=== PATIENT | female | born 1960 | race Caucasian/White ===

== ENCOUNTER 2021-07-11 21:06 | Inpatient (IN) ==
[2021-07-11 21:55] LABS: Basophils # 0.1 K/mcL (0.0-0.2); Basophils % 0.6 %; Eosinophils # 0.2 K/mcL (0.0-0.6); Eosinophils % 1.6 %; Hemoglobin 15.4 g/dL (11.5-15.4); Immature Granulocytes % 0.3 % (0-4); Lymphocytes # 5.3 K/mcL (0.6-4.6); Lymphocytes % 53.1 %; Mean Corpuscular Hemoglobin 30.2 pg (28.0-33.3); Mean Corpuscular Volume 86.3 fL (83.0-100.0); Mean Platelet Volume 9.7 fL (9.4-12.4); Monocytes # 0.7 K/mcL (0.0-1.3); Monocytes % 6.8 %; Neutrophils # 3.8 K/mcL (1.6-8.9); Platelet Count 313 K/mcL (140-400); Red Cell Distribution Width 13.2 % (11.5-14.5); Segmented Neutrophils % 37.6 %
[2021-07-11] MEDS ORDERED: *HR* LORazepam 0.5 MG TABLET PO ONE (22:11)
[2021-07-11 22:20] LABS: Acetaminophen < 10 mcg/mL (10-20); Alanine Aminotransferase 11 Units/L (7-52); Albumin/Globulin Ratio 1.5 (1.1-2.2); Alkaline Phosphatase 62 Units/L (34-104); Aspartate Amino Transferase 12 Units/L (13-39); BUN/Creatinine Ratio 11 (6-26); Bilirubin,Direct 0.1 mg/dL (0.0-0.2); Bilirubin,Indirect 0.4 mg/dL (0.0-1.0); Bilirubin,Total 0.5 mg/dL (0.3-1.0); Blood Urea Nitrogen 10 mg/dL (6-20); Calcium 9.5 mg/dL (8.6-10.3); Carbon Dioxide 19 mEq/L (23-29); Chloride 107 mEq/L (98-107); Ethanol < 10 mg/dL (Less than 10); Globulin 2.6 g/dL (2.4-3.5); Glucose 95 mg/dL (70-105); Osmolality,Calculated 283 (280-300); Potassium 3.4 mEq/L (3.5-5.1); Sodium 137 mEq/L (136-145); Total Protein 6.6 g/dL (6.4-8.9); eGFR For African Americans > 60 (> 60); eGFR For Non-African Americans > 60 (> 60)
[2021-07-11 22:29] LABS: Bacteria,Urine Few per hpf (None-Few); Bilirubin,Urine Negative (Negative); Blood,Urine Small (Negative); Clarity,Urine Clear (Clear); Color,Urine Light-Yellow (Yellow); Glucose,Urine (UA) Normal (Normal); Ketones,Urine 60 mg/dL (Negative); Leukocyte Esterase,Urine Trace (Negative); Mucus,Urine Few per lpf (None-Few); Nitrite,Urine Negative (Negative); Protein,Urine Trace mg/dL (Neg-Trace); Specific Gravity,Urine 1.019 (1.010-1.025); Squamous Epithelial Cell,Urine Few per hpf (None-Few); WBC,Urine 0-3 per hpf (0-3)
[2021-07-11 22:56] LABS: Amphetamine Screen,Urine Negative ng/mL (Cutoff=1000); Barbiturate Screen,Urine Negative ng/mL (Cutoff=200); Benzodiazepines Screen,Urine Positive ng/mL (Cutoff=200); Cannabinoid Screen,Urine Negative ng/mL (Cutoff = 50); Cocaine Screen,Urine Negative ng/mL (Cutoff= 300); Opiate Screen,Urine Negative ng/mL (Cutoff=300); Phencyclidine Screen,Urine Negative ng/mL (Cutoff=25)
[2021-07-12 02:21] LABS: Influenza A PCR Negative (Negative); Influenza B PCR Negative (Negative); Resp. Syncytial Virus PCR Negative (Negative)
[2021-07-12 02:35] LABS: SARS-CoV-2 by PCR (In House) Negative (Negative)
[2021-07-12] MEDS ORDERED: hydrOXYzine pamoate 25 MG CAPSULE PO PRN (04:36)
[2021-07-12] MEDS ORDERED: Ibuprofen 400 MG TABLET PO PRN (04:36)
[2021-07-12] MEDS ORDERED: *HR* LORazepam 2 MG/ML VIAL IM PRN (04:36)
[2021-07-12] MEDS ORDERED: haloperidoL 5 MG TABLET PO PRN (04:36)
[2021-07-12] MEDS ORDERED: Acetaminophen 325 MG TABLET PO PRN (04:36)
[2021-07-12] MEDS ORDERED: traZODone 50 MG TABLET PO PRN (04:36)
[2021-07-12] MEDS ORDERED: Haloperidol Lactate 5 MG/ML VIAL IM PRN (04:36)
[2021-07-12] MEDS ORDERED: *HR* LORazepam 1 MG TABLET PO PRN (04:36)
[2021-07-12] MEDS ORDERED: Nicotine 21 MG PATCH.TD24 TD SCH (04:45)
[2021-07-12] MEDS ORDERED: Mag Hydrox/Al Hydrox/Simeth 30 ML UDC PO PRN (08:17)
[2021-07-12] MEDS ORDERED: MOM Conc 10 ML UD.LIQ PO PRN (08:17)
[2021-07-12] MEDS ORDERED: ALPRAZolam 1 MG TABLET PO SCH (09:00)
[2021-07-12] MEDS ORDERED: ALPRAZolam 1 MG TABLET PO PRN (10:18)
[2021-07-12 10:25] VITALS: TEMP 98.2; O2SAT 97
[2021-07-12] MEDS ORDERED: diazePAM 2 MG TABLET PO SCH (10:30)
[2021-07-12] MEDS ORDERED: Isovue-370 500 ML BOTTLE IVP ONE (10:46)
[2021-07-12 11:25] LABS: Basophils # 0.1 K/mcL (0.0-0.2); Basophils % 0.7 %; Hematocrit 47.6 % (35.3-44.9); Hemoglobin 16.2 g/dL (11.5-15.4); Immature Granulocytes % 0.2 % (0-4); Lymphocytes # 3.1 K/mcL (0.6-4.6); Mean Corpuscular Hemoglobin 29.8 pg (28.0-33.3); Mean Corpuscular Volume 87.5 fL (83.0-100.0); Mean Platelet Volume 9.4 fL (9.4-12.4); Monocytes # 0.5 K/mcL (0.0-1.3); Monocytes % 5.8 %; Neutrophils # 4.5 K/mcL (1.6-8.9); Platelet Count 296 K/mcL (140-400); Red Blood Count 5.44 M/mcL (3.82-4.97); Red Cell Distribution Width 13.6 % (11.5-14.5); Segmented Neutrophils % 55.3 %; White Blood Count 8.1 K/mcL (4.3-11.1)
[2021-07-12 11:43] LABS: BUN/Creatinine Ratio 10 (6-26); Blood Urea Nitrogen 10 mg/dL (6-20); Calcium 9.7 mg/dL (8.6-10.3); Carbon Dioxide 20 mEq/L (23-29); Chloride 106 mEq/L (98-107); Glucose 96 mg/dL (70-105); Osmolality,Calculated 287 (280-300); Potassium 3.8 mEq/L (3.5-5.1); Sodium 139 mEq/L (136-145); eGFR For African Americans > 60 (> 60); eGFR For Non-African Americans 59 (> 60)
[2021-07-12 14:58] VITALS: BP 103/72; PULSE 144
== END 2021-07-12 16:00 | disposition other institution (70) | DRG 885 ==
LOC: EMEROOARM 21:06 → MERGE 07-12 04:46 → 1ANU 07-12 04:46
PROVIDERS: ADMIT Psychiatry & Neurology Psychiatry; ATTEND Psychiatry & Neurology Psychiatry

== ENCOUNTER 2021-07-12 14:39 | Observation (INO) ==
[2021-07-12] MEDS ORDERED: Naloxone 0.4 MG/ML INJ IVP PRN (15:16)
[2021-07-12] MEDS ORDERED: Ondansetron 4 MG/2 ML VIAL IVP PRN (15:16)
[2021-07-12] MEDS ORDERED: 0.9 % Sodium Chloride 1,000 ML IVC ONE (15:17)
[2021-07-12] MEDS ORDERED: Perflutren Lipid Microsphere 1.3 ML in 0.9 % Sodium Chloride 8.7 ML IVP PRN (15:18)
[2021-07-12] MEDS ORDERED: haloperidoL 5 MG TABLET PO PRN (15:22)
[2021-07-12] MEDS: ALPRAZolam 1 MG TABLET PO SCH ×2 (17:31→21:09)
[2021-07-12] MEDS: *HR* Heparin 5,000 UNIT/ML VIAL SQ SCH (17:31)
[2021-07-12] MEDS: Aspirin 81 MG TAB.CHEW PO SCH (17:31)
[2021-07-12] MEDS: 0.9 % Sodium Chloride 1,000 ML IVC SCH (18:27)
[2021-07-13 02:36] LABS: Basophils # 0.1 K/mcL (0.0-0.2); Basophils % 0.9 %; Hematocrit 40.9 % (35.3-44.9); Immature Granulocytes % 0.2 % (0-4); Lymphocytes # 4.2 K/mcL (0.6-4.6); Lymphocytes % 50.9 %; Mean Corpuscular HGB Conc 33.3 g/dL (31.6-35.5); Mean Corpuscular Hemoglobin 29.5 pg (28.0-33.3); Mean Corpuscular Volume 88.7 fL (83.0-100.0); Mean Platelet Volume 10.1 fL (9.4-12.4); Monocytes # 0.5 K/mcL (0.0-1.3); Neutrophils # 3.5 K/mcL (1.6-8.9); Platelet Count 285 K/mcL (140-400); Red Blood Count 4.61 M/mcL (3.82-4.97); Red Cell Distribution Width 13.5 % (11.5-14.5); White Blood Count 8.2 K/mcL (4.3-11.1)
[2021-07-13 02:37] LABS: Hemoglobin 13.6 g/dL (11.5-15.4)
[2021-07-13 02:58] LABS: BUN/Creatinine Ratio 11 (6-26); Blood Urea Nitrogen 10 mg/dL (6-20); Calcium 8.6 mg/dL (8.6-10.3); Carbon Dioxide 21 mEq/L (23-29); Chloride 110 mEq/L (98-107); Glucose 83 mg/dL (70-105); Magnesium 1.8 mg/dL (1.6-2.6); Osmolality,Calculated 290 (280-300); Phosphorous 3.5 mg/dL (2.7-4.5); Potassium 3.4 mEq/L (3.5-5.1); Sodium 141 mEq/L (136-145); Troponin I < 0.03 ng/mL (< 0.04); eGFR For African Americans > 60 (> 60); eGFR For Non-African Americans > 60 (> 60)
[2021-07-13] MEDS: 0.9 % Sodium Chloride 1,000 ML IVC SCH ×3 (03:12→15:36)
[2021-07-13] MEDS: *HR* Heparin 5,000 UNIT/ML VIAL SQ SCH ×2 (05:56→16:52)
[2021-07-13] MEDS: Regadenoson 0.4 MG/5 ML SYRINGE IVP ONE (06:41)
[2021-07-13] MEDS: Aspirin 81 MG TAB.CHEW PO SCH (08:26)
[2021-07-13] MEDS: ALPRAZolam 1 MG TABLET PO SCH ×3 (08:26→21:19)
[2021-07-13] MEDS ORDERED: *HR* LORazepam 2 MG/ML VIAL IVP ONE (10:08)
[2021-07-13] MEDS: Potassium Chloride Elixir 20 MEQ/15 ML UDC PO SCH ×2 (14:03→21:20)
[2021-07-13] MEDS: Nicotine 21 MG PATCH.TD24 TD SCH (16:52)
[2021-07-14] MEDS: 0.9 % Sodium Chloride 1,000 ML IVC SCH ×2 (00:51→09:01)
[2021-07-14] MEDS: *HR* Heparin 5,000 UNIT/ML VIAL SQ SCH ×2 (05:30→14:17)
[2021-07-14] MEDS ORDERED: Regadenoson 0.4 MG/5 ML SYRINGE IVP ONE (06:11)
[2021-07-14 06:16] LABS: Basophils # 0.1 K/mcL (0.0-0.2); Eosinophils % 0.1 %; Hematocrit 39.8 % (35.3-44.9); Hemoglobin 13.2 g/dL (11.5-15.4); Immature Granulocytes % 0.1 % (0-4); Lymphocytes # 4.2 K/mcL (0.6-4.6); Lymphocytes % 47.4 %; Mean Corpuscular HGB Conc 33.2 g/dL (31.6-35.5); Mean Corpuscular Hemoglobin 30.3 pg (28.0-33.3); Mean Corpuscular Volume 91.5 fL (83.0-100.0); Mean Platelet Volume 9.9 fL (9.4-12.4); Monocytes # 0.6 K/mcL (0.0-1.3); Monocytes % 7.2 %; Neutrophils # 3.9 K/mcL (1.6-8.9); Platelet Count 270 K/mcL (140-400); Red Blood Count 4.35 M/mcL (3.82-4.97); Red Cell Distribution Width 13.4 % (11.5-14.5); Segmented Neutrophils % 44.2 %; White Blood Count 8.8 K/mcL (4.3-11.1)
[2021-07-14 06:49] LABS: BUN/Creatinine Ratio 6 (6-26); Blood Urea Nitrogen 4 mg/dL (6-20); Calcium 8.6 mg/dL (8.6-10.3); Carbon Dioxide 22 mEq/L (23-29); Chloride 112 mEq/L (98-107); Glucose 83 mg/dL (70-105); Osmolality,Calculated 288 (280-300); Potassium 3.4 mEq/L (3.5-5.1); Sodium 141 mEq/L (136-145); eGFR For African Americans > 60 (> 60); eGFR For Non-African Americans > 60 (> 60)
[2021-07-14 06:51] LABS: Chol/HDL Ratio 5.8 (0-4.9)
[2021-07-14] MEDS: Regadenoson 0.4 MG/5 ML SYRINGE IVP ONE (07:44)
[2021-07-14] MEDS: Nicotine 21 MG PATCH.TD24 TD SCH (08:52)
[2021-07-14] MEDS: ALPRAZolam 1 MG TABLET PO SCH ×2 (08:53→14:23)
[2021-07-14] MEDS: Aspirin 81 MG TAB.CHEW PO SCH (08:54)
[2021-07-14] MEDS ORDERED: Potassium Chloride Elixir 20 MEQ/15 ML UDC PO SCH (09:00)
[2021-07-14 10:58] VITALS: BP 125/74; PULSE 82; TEMP 98.5; O2SAT 98
[2021-07-14] MEDS ORDERED: Acetaminophen 325 MG TABLET PO PRN (14:27)
== END 2021-07-14 18:21 ==
LOC: 2ANU → SUATTDRO 16:36 → MERGE 16:36
PROVIDERS: ADMIT Student in an Organized Health Care Education/Training Program; ATTEND Family Medicine

== ENCOUNTER 2021-07-14 18:27 | Inpatient (IN) ==
[2021-07-14] MEDS ORDERED: haloperidoL 5 MG TABLET PO PRN (20:25)
[2021-07-14] MEDS ORDERED: Mag Hydrox/Al Hydrox/Simeth 30 ML UDC PO PRN (20:25)
[2021-07-14] MEDS ORDERED: MOM Conc 10 ML UD.LIQ PO PRN (20:25)
[2021-07-14] MEDS ORDERED: *HR* LORazepam 1 MG TABLET PO PRN (20:25)
[2021-07-14] MEDS ORDERED: Haloperidol Lactate 5 MG/ML VIAL IM PRN (20:25)
[2021-07-14] MEDS ORDERED: *HR* LORazepam 2 MG/ML VIAL IM PRN (20:25)
[2021-07-14] MEDS: ALPRAZolam 1 MG TABLET PO SCH (21:18)
[2021-07-15] MEDS: Aspirin 81 MG TAB.CHEW PO SCH (08:21)
[2021-07-15] MEDS: Nicotine 21 MG PATCH.TD24 TD SCH (08:21)
[2021-07-15] MEDS: ALPRAZolam 1 MG TABLET PO SCH ×3 (08:22→20:45)
[2021-07-15] MEDS: Acetaminophen 325 MG TABLET PO PRN (13:20)
[2021-07-16] MEDS: Aspirin 81 MG TAB.CHEW PO SCH (08:44)
[2021-07-16] MEDS: Nicotine 21 MG PATCH.TD24 TD SCH (08:44)
[2021-07-16] MEDS: ALPRAZolam 1 MG TABLET PO SCH ×3 (08:45→20:52)
[2021-07-16] MEDS: Loratadine 10 MG TABLET PO SCH (13:07)
[2021-07-16] MEDS: Acetaminophen 325 MG TABLET PO PRN ×2 (13:09→20:52)
[2021-07-17] MEDS: Nicotine 21 MG PATCH.TD24 TD SCH (08:23)
[2021-07-17] MEDS: Aspirin 81 MG TAB.CHEW PO SCH (08:24)
[2021-07-17] MEDS: ALPRAZolam 1 MG TABLET PO SCH (08:24)
[2021-07-17] MEDS: Loratadine 10 MG TABLET PO SCH (08:24)
[2021-07-17] MEDS ORDERED: ALPRAZolam 1 MG TABLET PO SCH (15:00)
[2021-07-17] MEDS: Ibuprofen 400 MG TABLET PO PRN (15:07)
[2021-07-17] MEDS ORDERED: diazePAM 2 MG TABLET PO SCH (21:00)
[2021-07-18] MEDS ORDERED: ALPRAZolam 1 MG TABLET PO SCH ×2 (09:00→15:00)
[2021-07-18] MEDS: ALPRAZolam 1 MG TABLET PO SCH ×3 (09:07→20:38)
[2021-07-18] MEDS: Loratadine 10 MG TABLET PO SCH (09:08)
[2021-07-18] MEDS: Aspirin 81 MG TAB.CHEW PO SCH (09:09)
[2021-07-18] MEDS: Nicotine 21 MG PATCH.TD24 TD SCH (09:09)
[2021-07-18] MEDS: Acetaminophen 325 MG TABLET PO PRN (18:34)
[2021-07-18] MEDS: hydrOXYzine pamoate 25 MG CAPSULE PO PRN (18:34)
[2021-07-19] MEDS: ALPRAZolam 1 MG TABLET PO SCH ×3 (09:06→21:17)
[2021-07-19] MEDS: Aspirin 81 MG TAB.CHEW PO SCH (09:06)
[2021-07-19] MEDS: Loratadine 10 MG TABLET PO SCH (09:06)
[2021-07-19] MEDS: Nicotine 21 MG PATCH.TD24 TD SCH (09:07)
[2021-07-19] MEDS: Acetaminophen 325 MG TABLET PO PRN (17:20)
[2021-07-19] MEDS: hydrOXYzine pamoate 25 MG CAPSULE PO PRN (21:17)
[2021-07-19] MEDS: Ibuprofen 400 MG TABLET PO PRN (21:17)
[2021-07-20] MEDS: Aspirin 81 MG TAB.CHEW PO SCH (12:03)
[2021-07-20] MEDS: Loratadine 10 MG TABLET PO SCH (12:04)
[2021-07-20] MEDS: ALPRAZolam 1 MG TABLET PO SCH ×3 (12:04→21:13)
[2021-07-20] MEDS: Nicotine 21 MG PATCH.TD24 TD SCH (12:05)
[2021-07-20] MEDS: Acetaminophen 325 MG TABLET PO PRN ×2 (12:07→21:13)
[2021-07-20] MEDS: Ibuprofen 400 MG TABLET PO PRN (15:42)
[2021-07-21] MEDS: hydrOXYzine pamoate 25 MG CAPSULE PO PRN (02:28)
[2021-07-21] MEDS: Loratadine 10 MG TABLET PO SCH (10:16)
[2021-07-21] MEDS: ALPRAZolam 1 MG TABLET PO SCH ×3 (10:17→23:22)
[2021-07-21] MEDS: Aspirin 81 MG TAB.CHEW PO SCH (10:17)
[2021-07-21] MEDS: Nicotine 21 MG PATCH.TD24 TD SCH (10:17)
[2021-07-21] MEDS: Acetaminophen 325 MG TABLET PO PRN (11:15)
[2021-07-21] MEDS: Ibuprofen 400 MG TABLET PO PRN (15:04)
[2021-07-22] MEDS: hydrOXYzine pamoate 25 MG CAPSULE PO PRN (01:58)
[2021-07-22] MEDS: Loratadine 10 MG TABLET PO SCH (10:00)
[2021-07-22] MEDS: ALPRAZolam 1 MG TABLET PO SCH ×3 (10:00→21:38)
[2021-07-22] MEDS: Aspirin 81 MG TAB.CHEW PO SCH (10:00)
[2021-07-22] MEDS: Nicotine 21 MG PATCH.TD24 TD SCH (10:00)
[2021-07-22 11:43] VITALS: O2SAT 97
[2021-07-22 17:57] LABS: Basophils # 0.1 K/mcL (0.0-0.2); Basophils % 0.8 %; Eosinophils % 0.1 %; Hematocrit 46.4 % (35.3-44.9); Hemoglobin 15.6 g/dL (11.5-15.4); Immature Granulocytes % 0.1 % (0-4); Lymphocytes # 2.7 K/mcL (0.6-4.6); Lymphocytes % 35.7 %; Mean Corpuscular HGB Conc 33.6 g/dL (31.6-35.5); Mean Corpuscular Hemoglobin 30.2 pg (28.0-33.3); Mean Corpuscular Volume 89.9 fL (83.0-100.0); Mean Platelet Volume 10.6 fL (9.4-12.4); Monocytes # 0.6 K/mcL (0.0-1.3); Monocytes % 7.4 %; Neutrophils # 4.2 K/mcL (1.6-8.9); Platelet Count 259 K/mcL (140-400); Red Blood Count 5.16 M/mcL (3.82-4.97); Red Cell Distribution Width 13.3 % (11.5-14.5); Segmented Neutrophils % 55.9 %; White Blood Count 7.5 K/mcL (4.3-11.1)
[2021-07-22 18:22] LABS: BUN/Creatinine Ratio 18 (6-26); Blood Urea Nitrogen 19 mg/dL (6-20); Calcium 9.8 mg/dL (8.6-10.3); Carbon Dioxide 29 mEq/L (23-29); Chloride 102 mEq/L (98-107); Glucose 120 mg/dL (70-105); Osmolality,Calculated 285 (280-300); Sodium 136 mEq/L (136-145); eGFR For African Americans > 60 (> 60); eGFR For Non-African Americans 54 (> 60)
[2021-07-23] MEDS: Aspirin 81 MG TAB.CHEW PO SCH (09:07)
[2021-07-23] MEDS: Loratadine 10 MG TABLET PO SCH (09:08)
[2021-07-23] MEDS: ALPRAZolam 1 MG TABLET PO SCH ×2 (09:08→14:41)
[2021-07-23] MEDS: Nicotine 21 MG PATCH.TD24 TD SCH (09:09)
[2021-07-23 09:19] VITALS: BP 98/58; PULSE 120; TEMP 97.9
== END 2021-07-23 15:55 | disposition home or self-care (01) | DRG 885 ==
LOC: 1ANU 18:27
PROVIDERS: ADMIT Psychiatry & Neurology Psychiatry; ATTEND Psychiatry & Neurology Psychiatry

== ENCOUNTER 2021-09-23 00:55 | Inpatient (IN) ==
[2021-09-23 02:12] LABS: Basophils # 0.1 K/mcL (0.0-0.2); Basophils % 0.6 %; Hematocrit 48.8 % (35.3-44.9); Hemoglobin 16.3 g/dL (11.5-15.4); Immature Granulocytes % 0.2 % (0-4); Lymphocytes # 5.3 K/mcL (0.6-4.6); Lymphocytes % 50.9 %; Mean Corpuscular HGB Conc 33.4 g/dL (31.6-35.5); Mean Corpuscular Volume 89.9 fL (83.0-100.0); Mean Platelet Volume 10.4 fL (9.4-12.4); Monocytes # 0.7 K/mcL (0.0-1.3); Monocytes % 6.2 %; Neutrophils # 4.4 K/mcL (1.6-8.9); Platelet Count 281 K/mcL (140-400); Red Blood Count 5.43 M/mcL (3.82-4.97); Red Cell Distribution Width 13.3 % (11.5-14.5); Segmented Neutrophils % 42.1 %; White Blood Count 10.4 K/mcL (4.3-11.1)
[2021-09-23 02:24] LABS: Bacteria,Urine Few per hpf (None-Few); Bilirubin,Urine Negative (Negative); Blood,Urine Trace (Negative); Clarity,Urine Clear (Clear); Color,Urine Yellow (Yellow); Glucose,Urine (UA) Normal (Normal); Hyaline Casts,Urine Few per lpf (None Seen); Ketones,Urine 10 mg/dL (Negative); Leukocyte Esterase,Urine Small (Negative); Mucus,Urine Few per lpf (None-Few); Nitrite,Urine Negative (Negative); Protein,Urine Trace mg/dL (Neg-Trace); RBC,Urine 0-3 per hpf (0-3); Specific Gravity,Urine 1.016 (1.010-1.025); Squamous Epithelial Cell,Urine Moderate per hpf (None-Few)
[2021-09-23 02:27] LABS: Amphetamine Screen,Urine Negative ng/mL (Cutoff=1000); Barbiturate Screen,Urine Negative ng/mL (Cutoff=200); Benzodiazepines Screen,Urine Positive ng/mL (Cutoff=200); Cannabinoid Screen,Urine Negative ng/mL (Cutoff = 50); Cocaine Screen,Urine Negative ng/mL (Cutoff= 300); Opiate Screen,Urine Negative ng/mL (Cutoff=300); Phencyclidine Screen,Urine Negative ng/mL (Cutoff=25)
[2021-09-23 02:31] LABS: Acetaminophen < 10 mcg/mL (10-20); BUN/Creatinine Ratio 11 (6-26); Blood Urea Nitrogen 10 mg/dL (6-20); Calcium 10.1 mg/dL (8.6-10.3); Carbon Dioxide 27 mEq/L (23-29); Chloride 101 mEq/L (98-107); Ethanol < 10 mg/dL (Less than 10); Glucose 107 mg/dL (70-105); Osmolality,Calculated 284 (280-300); Potassium 3.5 mEq/L (3.5-5.1); Salicylate < 2.5 mg/dL (15.0-30.0); Sodium 137 mEq/L (136-145); eGFR For African Americans > 60 (> 60); eGFR For Non-African Americans > 60 (> 60)
[2021-09-23] MEDS ORDERED: 0.9 % Sodium Chloride 1,000 ML IVC ONE (02:34)
[2021-09-23 07:04] LABS: Influenza A PCR Negative (Negative); Influenza B PCR Negative (Negative); Resp. Syncytial Virus PCR Negative (Negative)
[2021-09-23 07:28] LABS: SARS-CoV-2 by PCR (In House) Negative (Negative)
[2021-09-23] MEDS: ALPRAZolam 1 MG TABLET PO SCH ×3 (09:58→18:05)
[2021-09-23] MEDS ORDERED: haloperidoL 5 MG TABLET PO PRN (13:57)
[2021-09-23] MEDS ORDERED: Haloperidol Lactate 5 MG/ML VIAL IM PRN (13:57)
[2021-09-23] MEDS ORDERED: traZODone 50 MG TABLET PO PRN (13:57)
[2021-09-23] MEDS ORDERED: *HR* LORazepam 1 MG TABLET PO PRN (13:57)
[2021-09-23] MEDS ORDERED: *HR* LORazepam 2 MG/ML VIAL IM PRN (13:57)
[2021-09-23] MEDS ORDERED: Mag Hydrox/Al Hydrox/Simeth 30 ML UDC PO PRN (16:48)
[2021-09-23] MEDS: Ibuprofen 400 MG TABLET PO PRN (17:34)
[2021-09-23] MEDS: Nicotine 21 MG PATCH.TD24 TD SCH (17:35)
[2021-09-23] MEDS: Acetaminophen 325 MG TABLET PO PRN (21:11)
[2021-09-23] MEDS: Melatonin 3 MG TABLET PO PRN (21:21)
[2021-09-24] MEDS: Acetaminophen 325 MG TABLET PO PRN (07:34)
[2021-09-24] MEDS ORDERED: Nicotine 21 MG PATCH.TD24 TD SCH (09:00)
[2021-09-24] MEDS: Ondansetron ODT 4 MG TAB.RAPDIS SL PRN ×2 (09:05→19:18)
[2021-09-24] MEDS: Nicotine 21 MG PATCH.TD24 TD SCH (09:05)
[2021-09-24] MEDS: ALPRAZolam 1 MG TABLET PO SCH ×3 (10:24→18:12)
[2021-09-24] MEDS: Ibuprofen 400 MG TABLET PO PRN (14:16)
[2021-09-24] MEDS: Fluticasone Propionate Nasal 50 MCG/SPRAY BOTTLE NS SCH (14:17)
[2021-09-24] MEDS: Melatonin 3 MG TABLET PO PRN (22:08)
[2021-09-25] MEDS: Ibuprofen 400 MG TABLET PO PRN ×3 (00:06→22:05)
[2021-09-25] MEDS: hydrOXYzine pamoate 25 MG CAPSULE PO PRN (00:06)
[2021-09-25] MEDS: Fluticasone Propionate Nasal 50 MCG/SPRAY BOTTLE NS SCH (09:11)
[2021-09-25] MEDS: Nicotine 21 MG PATCH.TD24 TD SCH (09:12)
[2021-09-25] MEDS: ALPRAZolam 1 MG TABLET PO SCH ×4 (09:13→18:01)
[2021-09-25] MEDS: Acetaminophen 325 MG TABLET PO PRN (09:43)
[2021-09-25] MEDS: Ondansetron ODT 4 MG TAB.RAPDIS SL PRN (09:44)
[2021-09-25] MEDS ORDERED: ALPRAZolam 1 MG TABLET PO SCH ×2 (14:00→18:00)
[2021-09-25] MEDS: Melatonin 3 MG TABLET PO PRN (22:03)
[2021-09-26] MEDS: ALPRAZolam 1 MG TABLET PO SCH ×3 (08:51→18:38)
[2021-09-26] MEDS: Nicotine 21 MG PATCH.TD24 TD SCH (08:52)
[2021-09-26] MEDS: Fluticasone Propionate Nasal 50 MCG/SPRAY BOTTLE NS SCH (08:55)
[2021-09-26] MEDS: Acetaminophen 325 MG TABLET PO PRN (14:27)
[2021-09-26] MEDS: Ibuprofen 400 MG TABLET PO PRN (22:40)
[2021-09-26] MEDS: Melatonin 3 MG TABLET PO PRN (22:40)
[2021-09-27] MEDS: Nicotine 21 MG PATCH.TD24 TD SCH (09:20)
[2021-09-27] MEDS: Fluticasone Propionate Nasal 50 MCG/SPRAY BOTTLE NS SCH (09:21)
[2021-09-27] MEDS: ALPRAZolam 1 MG TABLET PO SCH ×3 (09:23→18:32)
[2021-09-27] MEDS: Multivit/Ca/Min/Fe/FA 1 TAB TABLET PO SCH (12:27)
[2021-09-27] MEDS: Acetaminophen 325 MG TABLET PO PRN (13:53)
[2021-09-27] MEDS: Ibuprofen 400 MG TABLET PO PRN (18:32)
[2021-09-27] MEDS: Melatonin 3 MG TABLET PO PRN (23:10)
[2021-09-28] MEDS: Fluticasone Propionate Nasal 50 MCG/SPRAY BOTTLE NS SCH (08:49)
[2021-09-28] MEDS: Nicotine 21 MG PATCH.TD24 TD SCH (08:49)
[2021-09-28] MEDS: Multivit/Ca/Min/Fe/FA 1 TAB TABLET PO SCH (08:51)
[2021-09-28] MEDS: ALPRAZolam 1 MG TABLET PO SCH ×3 (08:52→18:15)
[2021-09-28] MEDS: Acetaminophen 325 MG TABLET PO PRN (11:19)
[2021-09-28] MEDS: Ibuprofen 400 MG TABLET PO PRN ×2 (16:15→22:05)
[2021-09-28] MEDS: Melatonin 3 MG TABLET PO PRN (22:05)
[2021-09-29] MEDS: Multivit/Ca/Min/Fe/FA 1 TAB TABLET PO SCH (09:04)
[2021-09-29] MEDS: Nicotine 21 MG PATCH.TD24 TD SCH (09:04)
[2021-09-29] MEDS: ALPRAZolam 1 MG TABLET PO SCH ×3 (09:06→18:36)
[2021-09-29] MEDS: Fluticasone Propionate Nasal 50 MCG/SPRAY BOTTLE NS SCH ×2 (09:07→12:39)
[2021-09-29] MEDS: Acetaminophen 325 MG TABLET PO PRN ×2 (10:06→18:36)
[2021-09-29] MEDS: MOM Conc 10 ML UD.LIQ PO PRN (17:25)
[2021-09-29] MEDS: Melatonin 3 MG TABLET PO PRN (21:27)
[2021-09-29] MEDS: Ibuprofen 400 MG TABLET PO PRN (21:27)
[2021-09-30] MEDS: Fluticasone Propionate Nasal 50 MCG/SPRAY BOTTLE NS SCH (09:35)
[2021-09-30] MEDS: Acetaminophen 325 MG TABLET PO PRN ×2 (09:35→19:01)
[2021-09-30] MEDS: Nicotine 21 MG PATCH.TD24 TD SCH (09:36)
[2021-09-30] MEDS: ALPRAZolam 1 MG TABLET PO SCH ×3 (09:37→18:08)
[2021-09-30] MEDS: Multivit/Ca/Min/Fe/FA 1 TAB TABLET PO SCH (09:37)
[2021-09-30] MEDS: Ibuprofen 400 MG TABLET PO PRN ×2 (14:05→21:15)
[2021-09-30] MEDS: Melatonin 3 MG TABLET PO SCH (20:21)
[2021-09-30] MEDS: hydrOXYzine pamoate 25 MG CAPSULE PO PRN (23:45)
[2021-10-01] MEDS: Nicotine 21 MG PATCH.TD24 TD SCH (08:55)
[2021-10-01] MEDS: Multivit/Ca/Min/Fe/FA 1 TAB TABLET PO SCH (08:56)
[2021-10-01] MEDS: Fluticasone Propionate Nasal 50 MCG/SPRAY BOTTLE NS SCH (08:56)
[2021-10-01] MEDS: ALPRAZolam 1 MG TABLET PO SCH ×3 (08:58→17:25)
[2021-10-01] MEDS: Acetaminophen 325 MG TABLET PO PRN ×2 (12:15→21:04)
[2021-10-01 16:37] LABS: Basophils # 0.1 K/mcL (0.0-0.2); Basophils % 0.8 %; Hematocrit 44.2 % (35.3-44.9); Hemoglobin 14.8 g/dL (11.5-15.4); Immature Granulocytes % 0.3 % (0-4); Lymphocytes # 3.6 K/mcL (0.6-4.6); Lymphocytes % 47.1 %; Mean Corpuscular HGB Conc 33.5 g/dL (31.6-35.5); Mean Corpuscular Hemoglobin 30.7 pg (28.0-33.3); Mean Corpuscular Volume 91.7 fL (83.0-100.0); Monocytes # 0.7 K/mcL (0.0-1.3); Monocytes % 8.9 %; Neutrophils # 3.3 K/mcL (1.6-8.9); Platelet Count 287 K/mcL (140-400); Red Blood Count 4.82 M/mcL (3.82-4.97); Red Cell Distribution Width 13.7 % (11.5-14.5); Segmented Neutrophils % 42.9 %; White Blood Count 7.7 K/mcL (4.3-11.1)
[2021-10-01 17:02] LABS: Alanine Aminotransferase 15 Units/L (7-52); Albumin 4.1 g/dL (3.5-5.7); Albumin/Globulin Ratio 1.7 (1.1-2.2); Alkaline Phosphatase 68 Units/L (34-104); Aspartate Amino Transferase 14 Units/L (13-39); BUN/Creatinine Ratio 18 (6-26); Bilirubin,Total 0.3 mg/dL (0.3-1.0); Blood Urea Nitrogen 16 mg/dL (8-23); Calcium 9.7 mg/dL (8.6-10.3); Carbon Dioxide 29 mEq/L (23-29); Chloride 107 mEq/L (98-107); Globulin 2.4 g/dL (2.4-3.5); Glucose 90 mg/dL (70-105); Osmolality,Calculated 293 (280-300); Potassium 4.2 mEq/L (3.5-5.1); Sodium 141 mEq/L (136-145); Total Protein 6.5 g/dL (6.4-8.9); eGFR For African Americans > 60 (> 60); eGFR For Non-African Americans > 60 (> 60)
[2021-10-01] MEDS: Melatonin 3 MG TABLET PO SCH (21:03)
[2021-10-02] MEDS: Nicotine 21 MG PATCH.TD24 TD SCH (08:46)
[2021-10-02] MEDS: ALPRAZolam 1 MG TABLET PO SCH ×3 (08:49→17:58)
[2021-10-02] MEDS: Multivit/Ca/Min/Fe/FA 1 TAB TABLET PO SCH (08:49)
[2021-10-02] MEDS: Fluticasone Propionate Nasal 50 MCG/SPRAY BOTTLE NS SCH ×2 (09:42→11:11)
[2021-10-02] MEDS: Ibuprofen 400 MG TABLET PO PRN (11:10)
[2021-10-02] MEDS: Acetaminophen 325 MG TABLET PO PRN (21:29)
[2021-10-02] MEDS: Melatonin 3 MG TABLET PO PRN (22:19)
[2021-10-03] MEDS: Multivit/Ca/Min/Fe/FA 1 TAB TABLET PO SCH (09:04)
[2021-10-03] MEDS: ALPRAZolam 1 MG TABLET PO SCH ×3 (09:06→17:51)
[2021-10-03] MEDS: Nicotine 21 MG PATCH.TD24 TD SCH (09:07)
[2021-10-03] MEDS: Fluticasone Propionate Nasal 50 MCG/SPRAY BOTTLE NS SCH (11:01)
[2021-10-03] MEDS: MOM Conc 10 ML UD.LIQ PO PRN (14:53)
[2021-10-03 17:59] LABS: Basophils # 0.1 K/mcL (0.0-0.2); Basophils % 0.9 %; Hemoglobin 14.3 g/dL (11.5-15.4); Immature Granulocytes % 0.3 % (0-4); Lymphocytes # 4.4 K/mcL (0.6-4.6); Lymphocytes % 55.4 %; Mean Corpuscular Hemoglobin 30.6 pg (28.0-33.3); Mean Corpuscular Volume 89.9 fL (83.0-100.0); Mean Platelet Volume 9.5 fL (9.4-12.4); Monocytes # 0.7 K/mcL (0.0-1.3); Monocytes % 8.4 %; Neutrophils # 2.8 K/mcL (1.6-8.9); Platelet Count 280 K/mcL (140-400); Red Blood Count 4.67 M/mcL (3.82-4.97); Red Cell Distribution Width 13.7 % (11.5-14.5); White Blood Count 7.9 K/mcL (4.3-11.1)
[2021-10-03 18:37] LABS: Alanine Aminotransferase 19 Units/L (7-52); Albumin 3.9 g/dL (3.5-5.7); Albumin/Globulin Ratio 1.6 (1.1-2.2); Alkaline Phosphatase 69 Units/L (34-104); Aspartate Amino Transferase 17 Units/L (13-39); BUN/Creatinine Ratio 17 (6-26); Bilirubin,Total 0.3 mg/dL (0.3-1.0); Blood Urea Nitrogen 15 mg/dL (8-23); Calcium 9.6 mg/dL (8.6-10.3); Carbon Dioxide 30 mEq/L (23-29); Chloride 107 mEq/L (98-107); Globulin 2.4 g/dL (2.4-3.5); Glucose 95 mg/dL (70-105); Lipase 20 Units/L (11-82); Osmolality,Calculated 295 (280-300); Sodium 142 mEq/L (136-145); Total Protein 6.3 g/dL (6.4-8.9); Troponin I < 0.03 ng/mL (< 0.04); eGFR For African Americans > 60 (> 60); eGFR For Non-African Americans > 60 (> 60)
[2021-10-03] MEDS: Acetaminophen 325 MG TABLET PO PRN (20:00)
[2021-10-03] MEDS: Sennosides/Docusate Sodium TABLET PO SCH (21:46)
[2021-10-03] MEDS: Melatonin 3 MG TABLET PO PRN (21:46)
[2021-10-04] MEDS: Multivit/Ca/Min/Fe/FA 1 TAB TABLET PO SCH (09:16)
[2021-10-04] MEDS: Fluticasone Propionate Nasal 50 MCG/SPRAY BOTTLE NS SCH (09:16)
[2021-10-04] MEDS: ALPRAZolam 1 MG TABLET PO SCH (09:17)
[2021-10-04] MEDS: Sennosides/Docusate Sodium TABLET PO SCH (09:17)
[2021-10-04] MEDS: Nicotine 21 MG PATCH.TD24 TD SCH (09:18)
[2021-10-04 09:47] VITALS: BP 127/82; PULSE 98; TEMP 98; O2SAT 97
== END 2021-10-04 13:25 | disposition home or self-care (01) | DRG 751 ==
LOC: EMEROOARM 00:55 → SUATTDRO 14:15 → 1ANU 14:15
PROVIDERS: ADMIT Psychiatry & Neurology Psychiatry; ATTEND Student in an Organized Health Care Education/Training Program